=== PATIENT | female | born 1940 | race Two or more races ===

== ENCOUNTER 2020-11-10 07:43 | Day surgery (SDC) | payer OTHER ==
[~2020-11-10 07:43] MED LIST: COZAAR100 MG PO; GABAPENTIN400 MG PO; GLIPIZIDE XL10 MG PO; HYDROCHLOROTHIA25 MG PO; JENTADUETO XR1 EACH PO; LEVO-T25 MCG PO; LIPITOR40 MG PO
[2020-11-10] MEDS ORDERED: ULTRACET PO (09:49)
== END 2020-11-10 14:05 | disposition home or self-care (01) ==
LOC: CIR.AMB 07:43
PROVIDERS: ATTEND Surgery
DX: K62.1 Rectal polyp (principal); Z20.822 Contact with and (suspected) exposure to COVID-19